=== PATIENT | male | born 1990 | race African-American/Black ===

== ENCOUNTER 2019-09-04 16:50 | Emergency (ER) | payer MEDICAID ==
[~2019-09-04] VITALS: Ht 175.3 cm; Wt 63.5 kg
[2019-09-04 22:38] VITALS: BP 131/71
[2019-09-04 23:17] LABS: Urine Bacteria NONE SEEN /hpf (None Seen); Urine Blood Negative /uL (Negative); Urine Specific Gravity 1.031 (1.001-1.035); Urine WBC <1 /hpf (0 - 3)
== END 2019-09-05 00:37 | disposition left against medical advice (07) ==
LOC: ER 16:55
DX: R73.9 Hyperglycemia, unspecified (principal); Z53.21 Procedure and treatment not carried out due to patient leaving prior to being seen by health care provider
CPT/HCPCS: 81001; 82962